=== PATIENT | female | born 1955 | race Hispanic/Latino ===

== ENCOUNTER 2017-08-30 11:49 | Outpatient (CLI) | payer OTHER | END 2017-08-30 11:50 | disposition home or self-care (01) | LOC: LAB 11:49 | PROVIDERS: ATTEND Internal Medicine Critical Care Medicine | DX: R09.02 Hypoxemia (principal) | CPT/HCPCS: 36600; 82803 ==

== ENCOUNTER 2017-11-02 09:50 | Observation (INO) | payer OTHER ==
[2017-11-02] MEDS ORDERED: NACL 0.9% 1 ML, VANCOMYCIN VIAL 1,000 MG IR ONE (10:14)
[2017-11-02 10:47] LABS: Basophils % (Auto) 0.6 % (0.0-1.8); Eosinophils # (Auto) 0.1 K/mm3 (0.0-0.4); Eosinophils % (Auto) 1.6 % (0.0-4.3); Hematocrit 38.6 % (30.3-42.9); Hemoglobin 12.7 gm/dl (10.1-14.3); Lymphocytes # (Auto) 1.2 K/mm3 (1.2-5.4); Lymphocytes % (Auto) 18.9 % (13.4-35.0); Mean Corpuscular HGB Conc 33 % (30-34); Mean Corpuscular Hemoglobin 30 pg (28-32); Mean Corpuscular Volume 92 fl (79-97); Monocytes # (Auto) 0.6 K/mm3 (0.0-0.8); Monocytes % (Auto) 9.6 % (0.0-7.3); Platelet Count 254 K/mm3 (140-440); Red Cell Distribution Width 18.7 % (13.2-15.2)
[2017-11-02 10:57] LABS: INR 0.88 (0.87-1.13)
[2017-11-02 10:58] LABS: Partial Thromboplastin Time 26.2 Sec. (24.2-36.6)
[2017-11-02 11:00] LABS: Calcium 9.7 mg/dL (8.4-10.2)
[2017-11-02] MEDS ORDERED: NACL 0.45% 1000 ML 1,000 ML IV SCH (11:00)
[2017-11-02] MEDS ORDERED: DIPRIVAN 10 MG/ML IV ONE ×9 (11:35→13:30)
[2017-11-02] MEDS ORDERED: NACL 0.9% 500 ML IR ONE (11:44)
[2017-11-02] MEDS ORDERED: XYLOCAINE 1% 20 mL ONE (11:44)
[2017-11-02] MEDS ORDERED: ANCEF/STERILE WATER 2 GM/20 ML 2 GM/20 ML SYRINGE IV ONE (11:45)
[2017-11-02] MEDS ORDERED: MARCAINE 0.5% 60 ML INFILTRATI ONE (11:45)
--- NOTE | 2017-11-02 12:04 | Anesthesia Consultation ---
Anesthesia Consult and Med Hx Date of service: 11/02/17 - Airway Anesthetic Teeth Evaluation: Good, Caps, Crowns ROM Head & Neck: Adequate Mental/Hyoid Distance: Adequate Mallampati Class: Class II Intubation Access Assessment: Probably Good - Pre-Operative Health Status ASA Pre-Surgery Classification: ASA3 Proposed Anesthetic Plan: MAC - Pulmonary Hx Smoking: Yes (quit 30 years ago) COPD: Yes (newly diagnosed) Home Oxygen Therapy: Yes (at night for the last 4 months) - Cardiovascular System Hx Hypertension: Yes Hx Cardia Arrhythmia: Yes Hx Peripheral Vascular Disease: No (s/p right BKA following right leg fracture ) - Central Nervous System Hx Psychiatric Problems: Yes (anxiety/depression) - Endocrine Hx Hypothyroidism: Yes
--- NOTE | 2017-11-02 12:07 | Anesthesia Day of Surgery ---
Anesthesia Day of Surgery - Day of Surgery Patient Examined: Yes Patient H&P Reviewed: Yes Patient is NPO: Yes
[2017-11-02] MEDS ORDERED: HEPARIN/NS 5000 UNIT/500ML(CATH LAB) 500 ML IR ONE (12:21)
[2017-11-02] MEDS ORDERED: CARDIZEM ONE (13:25)
[2017-11-02] MEDS ORDERED: DIPRIVAN 10 MG/ML 1,000 MG/100 ML BOTTLE IV ONE (14:25)
[2017-11-02] MEDS ORDERED: CORDARONE IV ONE (15:18)
[2017-11-02] MEDS ORDERED: NACL 0.9% 1000 ML 1,000 ML ONE (15:20)
[2017-11-02] MEDS ORDERED: VANCOMYCIN VIAL 1,000 MG in NACL 0.9% 1,000 ML IRRIGATION ONE (15:23)
[2017-11-02] MEDS ORDERED: ANCEF/NS 1 GM/50 ML 1 GM/50 ML BAG IV SCH ×2 (17:00→20:00)
--- NOTE | 2017-11-02 18:25 | XRay Report ---
FINAL REPORT EXAM: XR CHEST 1V AP HISTORY: Pacemaker Postop TECHNIQUE: Single, portable chest x-ray. PRIORS: None. FINDINGS: Patient partially rotated to the left. Left subclavian transvenous cardiac device noted. Cardiac and mediastinal silhouette within normal limits. Lungs are mildly hypoinflated, without significant vascular congestion. No focal consolidation or apparent pneumothorax. IMPRESSION: 1. Status post placement of cardiac device. 2. No acute findings.
[2017-11-02] MEDS ORDERED: ceFAZolin 1 GM in NACL 0.9% 20 ML IV ONE (22:00)
[2017-11-03] MEDS ORDERED: MOTRIN PO PRN (01:03)
--- NOTE | 2017-11-03 09:39 | Short Stay Summary ---
Short Stay Documentation Date of service: 11/03/17 - History H&P: obtained from office - Allergies and Medications Current Medications: Allergies codeine Allergy (Verified 11/02/17 10:56) Rash itching Beta-Blockers (Beta-Adrenergic Bloc Adverse Reaction (Verified 11/02/17 10:26) Shortness of Breath lisinopril Adverse Reaction (Verified 11/02/17 10:56) Unknown pt states it makes her "cough" Sulfa (Sulfonamide Antibiotics) Adverse Reaction (Verified 11/02/17 10:27) Anaphylaxis Home Medications Medication Instructions Recorded Confirmed Last Taken Type Atorvastatin Calcium [Lipitor] 80 mg PO QHS 11/02/17 11/02/17 11/01/17 History Diltiazem HCl [Diltiazem 24Hr ER] 120 mg PO QHS 11/02/17 11/02/17 11/01/17 History Duloxetine HCl [Cymbalta] 120 mg PO DAILY 11/02/17 11/02/17 11/01/17 History Ergocalciferol (Vitamin D2) 2,000 unit PO DAILY 11/02/17 11/02/17 11/01/17 History [Vitamin D2] Gabapentin [Neurontin] 600 mg PO QID 11/02/17 11/02/17 11/01/17 History Hydroxyzine HCl [hydrOXYzine] 25 mg PO PRN PRN 11/02/17 11/02/17 10/19/17 History Levothyroxine Sodium [Synthroid] 100 mcg PO DAILY 11/02/17 11/02/17 11/01/17 History Multivitamin Tab [Multiple Vitamin 1 tab PO DAILY 11/02/17 11/02/17 11/01/17 History TAB (Theragran)] Spironolactone 25 mg PO DAILY 11/02/17 11/02/17 11/01/17 History Active Medications Ibuprofen (Motrin) 400 mg PO Q6H PRN PRN Reason: Pain, Mild (1-3) Last Admin: 11/03/17 01:36 Dose: 400 mg - Physical exam General appearance: no acute distress Integumentary: no rash, no growths, no abnormal pigmentation, other (left pectoralis PPM implantation site pressure dressing removed, telfa and tegaderm dressing in place, site c/d/i with no evidence of bleeding or hematoma, left arm immobilizer in place) HEENT: Atraumatic, PERRLA Lungs: Clear to auscultation Heart: Normal S1, Normal S2, Other (irreg irreg) Gastrointestinal: normal, normoactive bowel sounds Extremities: no ischemia, pulses intact, pulses symmetrical Neurological: Normal gait, Normal speech, Strength at 5/5 X4 ext - Brief post op/procedure progress note Date of procedure: 11/02/17 Pre-op diagnosis: atrial fibrillation Post-op diagnosis: same Procedure: Biventricular PPM implantation - see dictated operative report Estimated blood loss: none Condition: stable - Hospital course Hospital course: Pt presented for scheduled biventricular PPM implantation and successfully underwent the procedure. She was admitted overnight for observation. Device interrogation this AM revealed normal device function, post-procedure CXR with NAF, no pneumothorax. Pt has been clinically and hemodynamically stable and is medically cleared for discharge home today. The patient has been seen in conjunction with Dr. Schulz who agrees with the assessment and plan of care. - Disposition Condition at discharge: Good Disposition: DC-01 TO HOME OR SELFCARE - Discharge Diagnoses (1) Atrial fibrillation Status: Chronic (2) Biventricular cardiac pacemaker in situ Status: Chronic Short Stay Discharge Plan Activity: advance as tolerated, other (as per discharge instructions) Diet: low fat, low cholesterol, low salt Wound: keep clean and dry, other (as per discharge instructions) Additional Instructions: Resume Eliquis on 11/05/2017 Follow up with: TAMIE DELGADO MD [Primary Care Provider] - 7 Days JULIETA SIMPSON MD [Staff Physician] - 7 Days ([place] office, 2017 @ 11:00AM)
[2017-11-03 10:49] VITALS: BP 122/66
== END 2017-11-03 13:07 | disposition home or self-care (01) ==
LOC: CATHLABREC 09:50 → 4A 10:27
PROVIDERS: ADMIT Internal Medicine Cardiovascular Disease; ATTEND Internal Medicine Cardiovascular Disease
DX: I48.91 Unspecified atrial fibrillation (principal)
CPT/HCPCS: 33208; 33225; 36415; 71045; 80048; 85025; 85610; 85730; 93005; 93010; 96374; 96375; C1769; C1779; C1892; C1900; C2621; G0378; J0282; J0690; J1644; J2704; J3370; J7030; Q9967